=== PATIENT | female | born 1970 | race Caucasian/White ===

== ENCOUNTER 2022-04-21 13:04 | Emergency (ER) | payer OTHER, SELFPAY ==
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
[2022-04-21 13:30] VITALS: BP 133/78; PULSE 80; RESP 16; TEMP 36.6; O2SAT 100
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
--- NOTE | 2022-04-21 14:17 | PC.NURSE ---
Pt off floor in xray
[2022-04-21] MEDS: ONDANSETRON INJ 4 MG/2 ML VIAL IV PUSH (14:33)
[2022-04-21] MEDS: MORPHINE SULFATE (*CRX) 4 MG/ML INJ IV PUSH (14:33)
== END 2022-04-21 16:02 | disposition home or self-care (01) ==
PROVIDERS: Emergency Provider Emergency Medicine
DX: M25.512 Pain in left shoulder (principal); M79.5 Residual foreign body in soft tissue
CPT/HCPCS: 73030; 96374; 96375; 99284; J2270; J2405